=== PATIENT | male | born 1990 | race Two or more races ===

== ENCOUNTER 2020-04-26 00:02 | Emergency (ER) | payer OTHER ==
[~2020-04-26] VITALS: Ht 172.7 cm; Wt 119.0 kg
[2020-04-26 00:04] VITALS: BP 151/91
--- NOTE | 2020-04-26 00:15 | NUR ---
A&o 4, answering questions appropriately. Speaking in clear, full sentences. Pt states, "I was sucking on a cough drop, I don't have a cough I just like them. I think the sugar irritated my tooth. It started hurting all of a sudden." Denies chewing the cough drop to cause pain. Handling secretions without difficulty. No s/sx acute respiratory distress. 98% RA. No swelling noted to tongue/lips. No chip to tooth noted. Denies significant medical hx.
[2020-04-26] MEDS ORDERED: IBUPROFEN 800 MG TABLET PO ONE (00:30)
[2020-04-26] MEDS ORDERED: IBUPROFEN 800 MG TABLET ONE (00:49)
== END 2020-04-26 01:07 | disposition home or self-care (01) ==
LOC: ED 00:45
DX: K08.89 Other specified disorders of teeth and supporting structures (principal); R05 Cough
CPT/HCPCS: 99282